=== PATIENT | female | born 2000 | race Caucasian/White ===

== ENCOUNTER 2018-02-06 12:17 | Emergency (ER) | payer MEDICAID ==
--- NOTE | 2018-02-06 13:33 | EDPHY ---
H & P Stated Complaint: fell snowboarding 02/05-fx pelvice per [facility] Time Seen by Provider: 02/06/18 13:23 HPI/ROS: CHIEF COMPLAINT: Pelvic fracture HISTORY OF PRESENT ILLNESS: The patient is a 17-year-old female who was snowboarding yesterday when she fell hard onto her right hip. She has had pain ever since. She presented to the [facility] clinic today and had an x-ray done and was told that she had a pelvic fracture. She brought a disc with her for our review. She denies other injuries. She did not hit her head. The she has been ambulating but feels better with crutches. No hematuria. No vaginal bleeding. No abdominal pain. Severity: Moderate Modifying factors: None REVIEW OF SYSTEMS: Constitutional: denies: chills, fever, recent illness, recent injury EENTM: denies: blurred vision, double vision, nose congestion Respiratory: denies: cough, shortness of breath Cardiac: denies: chest pain, irregular heart rate, lightheadedness, palpitations Gastrointestinal/Abdominal: denies: abdominal pain, diarrhea, nausea, vomiting, blood streaked stools Genitourinary: denies: dysuria, frequency, hematuria, pain Musculoskeletal: See HPI Skin: denies: lesions, rash, jaundice, bruising Neurological: denies: headache, numbness, paresthesia, tingling, dizziness, weakness Hematologic/Lymphatic: denies: blood clots, easy bleeding, easy bruising Immunologic/allergic: denies: HIV/AIDS, transplant 10 systems reviewed and negative except as noted EXAM: GENERAL: Well-appearing, well-nourished and in no acute distress. HEAD: Atraumatic, normocephalic. EYES: Pupils equal round and reactive to light, extraocular movements intact, sclera anicteric, conjunctiva are normal. ENT: TMs normal, nares patent, oropharynx clear without exudates. Moist mucous membranes. NECK: Normal range of motion, supple without lymphadenopathy or JVD. LUNGS: Breath sounds clear to auscultation bilaterally and equal. No wheezes rales or rhonchi. HEART: Regular rate and rhythm without murmurs, rubs or gallops. ABDOMEN: Soft, nontender, normoactive bowel sounds. No guarding, no rebound. No masses appreciated. BACK: No CVA tenderness, no spinal tenderness, step-offs or deformities EXTREMITIES: Normal range of motion, no pitting or edema. No clubbing or cyanosis. NEUROLOGICAL: Cranial nerves II through XII grossly intact. Normal speech, the pain with weight-bearing on right leg. 5/5 strength, normal movement in all extremities, normal sensation, normal reflexes PSYCH: Normal mood, normal affect. SKIN: Warm, dry, normal turgor, no visible rashes or lesions. Source: Patient Exam Limitations: No limitations - Personal History LMP (Females 10-55): Extended Cycle BCP/Inj - Medical/Surgical History Hx Asthma: No Hx Chronic Respiratory Disease: No Hx Diabetes: No Hx Cardiac Disease: No Hx Renal Disease: No Hx Cirrhosis: No Hx Alcoholism: No Hx HIV/AIDS: No Hx Splenectomy or Spleen Trauma: No Other PMH: denies - Family History Significant Family History: No pertinent family hx - Social History Smoking Status: Never smoked Alcohol Use: Sober Drug Use: None Constitutional: Initial Vital Signs Temperature (C) 36.7 C 02/06/18 12:24 Heart Rate 78 02/06/18 12:24 Respiratory Rate 16 02/06/18 12:24 Blood Pressure 113/64 02/06/18 12:24 O2 Sat (%) 97 02/06/18 12:24 O2 Delivery Mode Room Air Allergies/Adverse Reactions: No Known Allergies Allergy (Unverified 02/06/18 12:23) Home Medications: Medication Instructions Recorded NK [No Known Home Meds] 02/06/18 Medical Decision Making ED Course/Re-evaluation: I reviewed the images performed at the clinic. She does have a inferior pubic ramus fracture on the right. No other visible injuries. She denies complaints in other areas. The we discussed this injury. She is currently using crutches. I encouraged her to be toe-touch weight-bearing as tolerated and consulted with Dr. Mendez PA from Orthopedics who agrees with this plan and will follow up the next week. Patient feels reassured Differential Diagnosis: Partial list of the Differential diagnosis considered include but were not limited to; the inferior pubic ramus fracture, bilateral fracture, hip injury, contusion and although unlikely based on the history and physical exam, I also considered bladder injury, abdominal injury, head injury, neck injury. I discussed these differential diagnoses and the plan with the patient as well as the usual and expected course. The patient understands that the diagnosis is provisional and that in medicine we are not always correct and that further workup is often warranted. Usual and customary warnings were given. All of the patient's questions were answered. The patient was instructed to return to the emergency department should the symptoms at all worsen or return, otherwise to followup with the physician as we discussed. Departure - Departure Disposition: Home, Routine, Self-Care Clinical Impression: Closed fracture of right inferior pubic ramus Qualifiers: Encounter type: initial encounter Qualified Code(s): S32.591A - Other specified fracture of right pubis, initial encounter for closed fracture Condition: Fair Instructions: Pelvic Fracture (ED) Additional Instructions: You have a nondisplaced inferior pubic ramus fracture on the right. Toe-touch Weight-bearing as tolerated. Follow up with Dr. Reyna as discussed. Referrals: NONE *PRIMARY CARE P,. [Primary Care Provider] - As per Instructions Fredrick Reyna MD [Medical Doctor] - 5-7 days, call for appt.
[2018-02-06 14:10] VITALS: BP 118/70
== END 2018-02-06 14:10 | disposition home or self-care (01) ==
DX: S32.591A Other specified fracture of right pubis, initial encounter for closed fracture (principal); V00.311A Fall from snowboard, initial encounter